=== PATIENT | male | born 1995 | race Hispanic/Latino ===

== ENCOUNTER 2024-03-14 08:48 | Emergency (ER) | payer SELFPAY ==
[2024-03-14 08:56] VITALS: BP 157/107
--- NOTE | 2024-03-14 10:21 | ED.GENMED ---
History of Present Illness
General
Chief Complaint: Musculo-Skeletal Complaint
Source: patient
Exam Limitations: none
Time Seen by Provider: 03/14/24 09:26
Nursing documentation reviewed up to this point in time: agreed with
History of Present Illness
History of Present Illness:
pt is a 28 y/o M with no sig pmh 1 week ago he says he was doing stretches he has done (yoga) in the past and felt some discomfort in his right hip/buttock that radiated down his right leg back of the leg to the toes.
he ended up going to urgent care about 4 days ago and they thought maybe sciatica or hip msk strain
gave him diclofenac and flexeril
pt says he was feeling better, able to do usual acitivty but then today bent over to get something and felt pain get much worse. he is able to be comfortable lying down but pain is worse with sitting and changing position
some tingling reported in his toes of right leg
no weakness, incontinene
has not had any imaging
no h/o low back pain chronically
no ivda
works as a auto apprentice mechanic.
Past History
Past History
ED Past Medical History: None
ED Past Surgical History: None
Social History
Tobacco: Non-smoker
Alcohol: None
Drug: None
Personal: Single
Living: with family
Employment: Employed
Review of Systems
Review of Systems
Allergies reviewed?: Yes
All Other Systems: Not applicable
Phy Exam
Physical Exam
Physical Exam:
GENERAL: Alert , in no apparent distress, comfortable at rest
HEAD: NCAT
NECK: no midline tenderness, active ROM intact, no paraspinal muscle tenderness;
CARDIAC: Regular rate and rhythm, no edema
LUNGS: Clear breath sounds bilaterally, no acute respiratory distress, no wheezes/rales/rhonchi
ABDOMEN: Soft, without focal tenderness, no r/g, no cvat, normal bowel sounds, nondistended
NEUROLOGICAL: Alert and oriented, no focal neuro deficits, CN intact, 5/5 strength, sensation intact, ambulation slight limp left leg
SKIN: Warm and dry,
MUSCULOSKELETAL: No edema, well perfused. Normal inspection of the right hip, left leg
Patient has no tenderness to palpation of the hip, MILD RIGHT tenderness in the SI joint
pain with the first 15 degrees of flexion in the hip, doesn't radiate down the leg
normal strength in the leg
some reported tingling in the right foot toes
Back: No midline tenderness, mild dextroscoliosis, no paraspinal tenderness, no swelling
negative straight leg raise Bilaterally
PSYCH: Normal and appropriate interaction.
Course
Orders/Labs/Results
Orders:
Orders
03/14/24 10:09
Hip, Right 2-3 Views [CR Hip - RT w/wo Pel 2-3 Vw*] Urgent
Comment:
Reason For Exam: right hip pain after stretching
Include a pelvis x-ray?: Yes
Lumbar Spine Complete, 4 View [CR Lumbar Spine Comp Min 4 Vw*] Urgent
Comment:
Reason For Exam: sciatia after bending
03/14/24 11:16
Acetaminophen [Tylenol] 650 mg PO NOW STA
Ketorolac [Toradol] 30 mg IM NOW STA
Prednisone [Deltasone] 50 mg PO NOW STA
Vital Signs
Initial and Last Documented VS:
Initial Vital Signs
Temp Pulse Resp BP Pulse Ox
98.7 F 86 18 157/107 100
03/14/24 08:56 03/14/24 08:56 03/14/24 08:56 03/14/24 08:56 03/14/24 08:56
Last Documented Vital Signs
Temp Pulse Resp BP Pulse Ox
98.7 F 86 18 145/100 100
03/14/24 08:56 03/14/24 08:56 03/14/24 08:56 03/14/24 11:56 03/14/24 08:56
MDM/Problems Addressed
Differential Diagnosis Includes:
sciatica, lumbar radiculopathy, calcific tendinitis hip, inguinal strain
MDM/Problems Addressed:
28 y /o M with posterior buttock pain/hip pain down right leg after stretching with yoga last week
it got worse today after bending over
already taking diclofenac and flexeril and was better until today's epsidoe
reporting some tinging in his toes
objectively normal sensation
+ straight leg raise right
right SI joint tenderness
no weakness
no cauda equina symptoms
xrays indep reviewed, has some djd lower spine
will add steroids, tylenol, lidocaine
fu pcp, may need pT
Chronic conditions affecting care:
AWARE OF HTN - pt was in pain; will have him recheck bp at home
*Critical Care Note
Total Time (30-74mins, 75-104mins- exclusive of procedures): Not Applicable
ED Attending Note
-
Portions of this chart may have been created with voice recognition software.� Occasional wrong word or��sound alike� substitutions may have occurred due to the inherent limitations of voice recognition software.
Discharge Plan
Departure
Patient Disposition: Home (Routine Discharge)
Date of Disposition: 03/14/24
Time of Disposition: 11:35
Patient with high blood pressure during this ER visit?: Yes
Condition: Fair
Discharge Problem:
Sciatica
Instructions: Sciatica (DC)
Prescriptions:
New
prednisone 50 mg tablet
50 mg PO DAILY Qty: 5 0RF
lidocaine 5 % adhesive patch,medicated
1 patch topical DAILY PRN (Reason: BACK PAIN) Qty: 15 0RF
Referrals:
[facility] [Outside] - Follow up in 2-3 days
NONE,* [Family Provider] -
Stand Alone Forms: Return to Work
Activity Restrictions/Additional Instructions:
Your x-ray shows some mild degenerative changes within your spine. Your symptoms are likely from sciatica, I believe from a pinched nerve in your SI joint but it could be a problem in your back. You should try prednisone once a day for 5 days
starting today. You can take Tylenol 3 times a day as needed for pain. You can continue the muscle relaxers as directed. You should probably avoid the diclofenac until the prednisone is completed and then you can resume this.
Return to the ER for leg weakness, worsening numbness, incontinence of urine or inability to urinate, fever or chills. You may need to have further testing as an outpatient with an MRI if this persist. Please see your family doctor. Oftentimes
people go to physical therapy as well may have something like this.
Interventions
Interventions:
*Risk Screen - Suicide Last Done: 03/14/24 08:58
*General Assessment Last Done: 03/14/24 08:58
*Neglect/Abuse Screening Last Done: 03/14/24 08:58
*Nursing Disposition Last Done: 03/14/24 11:56
ED-Musculoskeletal Assessment Last Done: 03/14/24 10:20
Discharge Date and Time
Discharge Date/Time: 03/14/24 11:58
Print Language: [id number]
[2024-03-14] MEDS: DELTASONE 50 MG PO (11:23)
[2024-03-14] MEDS: TORADOL 30 MG IM (11:23)
[2024-03-14] MEDS: TYLENOL 650 MG PO (11:23)
[2024-03-14 11:56] VITALS: BP 145/100
== END 2024-03-14 11:58 | disposition home or self-care (01) ==
LOC: EMR 08:48
PROVIDERS: EMERGENCY PHYSICIAN Student in an Organized Health Care Education/Training Program
DX: M54.31 Sciatica, right side (principal); I10 Essential (primary) hypertension
CPT/HCPCS: 99284; 96372; 72110; 73502